=== PATIENT | female | born 1995 | race Caucasian/White ===

== ENCOUNTER 2017-01-11 09:27 | Emergency (ER) | payer OTHER ==
[~2017-01-11] VITALS: Ht 170.2 cm; Wt 72.6 kg
[~2017-01-11 09:27] MED LIST: ALBUTEROL0.09 MG/A1 INH; BACTRIM DS 8001 TAB PO; CLEOCIN HCL300 M1 PO; FISH OIL CONC1000 MG PO; IBUPROFEN800 MG PO; MELOXICAM7.5 MG PO; MOBIC15 M1 PO; MULTIVITAMIN1 TAB PO; OXYCODONE HYDROC5 MG PO; POLYTRIM EYE DR10 ML OS; PRENATAL1 TA1 PO; TESSALON PERLE100 MG PO; TRIAMCINOL0.1 %/453 TOP; TYLENOL #31 TAB PO; UNISOM25 M1 PO; VISTARIL50 MG PO
[2017-01-11 10:07] LABS: ABSOLUTE BASOPHIL COUNT 0 /CUMM (0.0-0.2); ABSOLUTE EOSINOPHIL COUNT 0 /CUMM (0.0-0.7); ABSOLUTE LYMPH COUNT 0.8 /CUMM (1.2-3.4); ABSOLUTE MONOCYTE COUNT 0.3 /CUMM (0.10-0.60); BASOPHIL % 0.1 % (0.0-2.0); EOSINOPHIL % 0.6 % (0-5); HEMATOCRIT 45.7 % (37-47); MEAN CORPUSCULAR HGB 29.1 PG (27.0-31.0); MEAN CORPUSCULAR HGB CONC 33.3 G/DL (33.0-37.0); MEAN CORPUSCULAR VOLUME 87.3 FL (81.0-99.0); MEAN PLATELET VOLUME 8.1 FL (7.4-10.4); PLATELET COUNT 189 /CUMM (130-400); RBC DISTRIBUTION WIDTH 13.5 % (11.5-14.5); RED BLOOD CELL CT 5.23 /CUMM (4.20-5.40); WHITE BLOOD CELL COUNT 8.2 /CUMM (4.8-10.8)
[2017-01-11 10:24] LABS: GRANULOCYTE % 85.1 % (42.2-75.2)
--- NOTE | 2017-01-11 11:04 | ED GI/GU/ABDOMINAL COMPLAINT ---
History of Present Illness General Chief Complaint: Nausea, Vomiting, Diarrhea Stated Complaint: +NVD, X 12 HRS Source: patient Exam Limitations: no limitations Vital Signs & Intake/Output Vital Signs & Intake/Output Vital Signs Date Time Temp Pulse Resp B/P B/P Pulse O2 O2 Flow FiO2 Mean Ox Delivery Rate 01/11 1147 99.0 76 16 121/58 98 Room Air 01/11 1118 Room Air 01/11 0936 97.4 84 16 105/68 99 Room Air Allergies Coded Allergies: adhesive tape (BUMPS, RASH 06/11/16) cephalexin (From KEFLEX) (HIVES 06/11/16) oxycodone (SOB, HOT, NAUSEA, DIZZY, TUNNEL VISION 06/11/16) Reconcile Medications Dicyclomine Hydrochloride (Bentyl) 10 MG CAPSULE 1 CAP PO TID PRN GASTROENTERITIS Meloxicam (Mobic) 15 MG TABLET 1 TAB PO DAILY PRN PAIN/INFLAMMATION Norethindrone AC-Eth Estradiol (Loestrin 21 1-20 Tablet) 1 MG-20 MCG TABLET 1 TAB PO DAILY BC (Reported) Ondansetron HCl (Zofran) 4 MG TABLET 1 TAB PO Q6-8P PRN NAUSEA Triage Note: 21 Y/O FEMALE C/O "I HAVE FOOD POISINING .. I THINK I ATE UNDERCOOKED CHICKEN". PT STATES SHE VOMITED LAST NIGHT, OVERNIGHT AND THIS MORNING. ALSO C/O DIARRHEA. +NAUSEA. AFEBRILE Triage Nurses Notes Reviewed? yes ? N Is pt currently ? No Onset: Abrupt Duration: constant Timing: recent history Severity Numbers: 5 Location: generalized abdomen Radiation: no radiation Activities at Onset: eating HPI: Patient is a 21-year-old female who presents emergency room stating that yesterday at approximately 1400 she ate a [employer] chicken sandwich and then approximately 6 hours later had multiple episodes of nausea vomiting and diarrhea. Patient has generalized abdominal discomfort. Patient has not been able tolerate anything by mouth. Denies any fever chills recent antibiotic use or vaginal bleeding or discharge or dysuria hematuria or change in frequency of urination. Past History Travel History Traveled to [place] past 21 day No Medical History Any Pertinent Medical History? see below for history Neurological: NONE EENT: NONE Cardiovascular: NONE Respiratory: asthma, bronchitis Gastrointestinal: NONE Hepatic: NONE Renal: NONE Musculoskeletal: rheumatoid arthritis Psychiatric: NONE Endocrine: NONE Blood Disorders: NONE Cancer(s): NONE CLERICAL TRANSCRIBER/Reproductive: NONE Surgical History Surgical History: appendectomy, , L ANKLE SX Psychosocial History What is your primary language Finnish Tobacco Use: Current Daily Use Daily Tobacco Use Amount/Type: => 5 Cigarettes daily Family History Hx Contributory? No Review of Systems Review of Systems Constitutional: Reports: see HPI. Denies: chills, fever. EENTM: Reports: no symptoms. Respiratory: Reports: no symptoms. Cardiovascular: Reports: no symptoms. GI: Reports: see HPI, nausea, vomiting. Genitourinary: Reports: no symptoms. Musculoskeletal: Reports: no symptoms. Skin: Reports: no symptoms. Neurological/Psychological: Reports: no symptoms. Hematologic/Endocrine: Reports: no symptoms. Immunologic/Allergic: Reports: no symptoms. All Other Systems: Reviewed and Negative Physical Exam Physical Exam General Appearance: no apparent distress, alert, comfortable Gastrointestinal: normal bowel sounds, soft, non-tender Comments: Well-developed well-nourished person in no acute distress HEENT: Normal EENT exam, Neck: Supple, no lymphadenopathy, normal range of motion without pain or tenderness Back: Nontender, no CVA tenderness. Cardiovascular: Regular rate and rhythms no murmurs rubs or gallops, normal JVP Respiratory: Chest nontender. No respiratory distress.breath sounds clear to auscultation bilaterally Abdomen: Soft, nontender nondistended, no appreciable organomegaly. Normal bowel sounds. No ascites Extremity: No edema, no calf tenderness to palpation, normal and equal pulses. Neuro: Alert oriented x3, motor sensory normal, Skin: No appreciable rash on exposed skin, skin is warm and dry. Psych: Mood and affect is normal, memory and judgment is normal. Core Measures ACS in differential dx? No Severe Sepsis Present: No Septic Shock Present: No Progress Differential Diagnosis: biliary colic, bowel obstruction, colon cancer, cholecystitis, diverticulitis, ectopic , endometritis, esophageal varices, gastritis, hepatitis, hernia, hemorrhoids, ischemic bowel, inflamm bowel dis, intrauterine , kidney stone, ovarian cyst, ovarian torsion, pancreatitis, PID/cervicitis, peptic ulcer, PUD/GERD, perforated viscous, SBO, threatened AB, UTI/pyelo Plan of Care: Orders Procedure Date/time Status LACTIC ACID 01/11 1244 Active Add-on Test (ER Only) 01/11 1104 Active HUMAN BETA HCG SCREEN 01/11 0957 Complete LACTIC ACID 01/11 09 Complete COMPREHENSIVE METABOLIC PANEL 01/12 944 Complete CBC WITHOUT DIFFERENTIAL 01/12 944 Complete URINE 01/11 939 Active URINALYSIS 01/11 939 Active Current Medications Sig/Pema Start time Last Medication Dose Stop Time Status Admin Sodium Chloride 1,000 ML BOLUS ONE 01/11 1115 AC 01/11 (Normal Saline 0.9%) 01/11 1214 1117 Laboratory Tests 01/11/17 0957: Anion Gap 12, Estimated GFR > 60, BUN/Creatinine Ratio 21.4, Glucose 89, Lactic Acid 0.9, Calcium 8.8, Total Bilirubin 0.8, AST 18, ALT 22, Alkaline Phosphatase 53, Total Protein 7.1, Albumin 4.1, Globulin 3.0, Albumin/Globulin Ratio 1.4, Total Beta HCG NEGATIVE, CBC w Diff NO MAN DIFF REQ, RBC 5.23, MCV 87.3, MCH 29.1, RDW 13.5, MPV 8.1, Gran % 85.1 H, Lymphocytes % 10.1 L, Monocytes % 4.1, Eosinophils % 0.6, Basophils % 0.1, Absolute Granulocytes 7.0 H, Absolute Lymphocytes 0.8 L, Absolute Monocytes 0.3, Absolute Eosinophils 0, Absolute Basophils 0, PUBS MCHC 33.3 Patient currently is resting comfortably bedside. Patient has nontender abdomen afebrile blood work was unremarkable. Due to history of present illness and exam findings or suspicion of gastroenteritis due to ingestion of FAST - food. 01/11/2017 12:06:58 PM reevaluation of the patient she felt significantly improved patient was able tolerate by mouth water and crackers prior to arrival. (KEVIN KAY,MANNY) Initial ED EKG: none Departure Departure Disposition: HOME OR SELF CARE Condition: Stable Clinical Impression Primary Impression: Gastroenteritis Secondary Impressions: Nausea vomiting and diarrhea Referrals: UNKNOWN (PCP/Family) Additional Instructions: As discussed begin a 24-hour clear liquid and bland diet to rest your bowels. Begin the prescription is Zofran for nausea and a prescription of Bentyl for your symptoms. Prescription is waiting at [place] [facility]. If no better on Saturday follow-up with [id number] urologist Dr. DENSON If symptoms worsen return to emergency room. BEGIN DRINKING plenty of water for hydration Departure Forms: Customer Survey General Discharge Information Prescriptions: Current Visit Scripts Ondansetron HCl (Zofran) 1 TAB PO Q6-8P PRN NAUSEA #15 TAB Dicyclomine Hydrochloride (Bentyl) 1 CAP PO TID PRN GASTROENTERITIS #9 CAP
[2017-01-11] MEDS ORDERED: ZOFRAN4 M2 PO (11:41)
[2017-01-11] MEDS ORDERED: BENTYL10 M1 PO (11:41)
[2017-01-11] MEDS ORDERED: LOESTRIN 21 1-1 EACH PO (11:43)
[2017-01-11 11:47] VITALS: BP 121/58
== END 2017-01-11 12:11 ==
LOC: ERH 09:27
PROVIDERS: Emergency Medicine
DX: K52.9 Noninfective gastroenteritis and colitis, unspecified (principal)
CPT/HCPCS: 81025; 96361; 96374; J2405

== ENCOUNTER 2017-01-24 11:21 | Emergency (ER) | payer OTHER ==
[~2017-01-24] VITALS: Ht 172.7 cm; Wt 72.6 kg
[~2017-01-24 11:21] MED LIST changes: +BENTYL10 M1 PO; +LOESTRIN 21 1-1 EACH PO; +ZOFRAN4 M2 PO
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
--- NOTE | 2017-01-24 13:42 | RADIOLOGY REPORT ---
Indication: Trauma EXAMINATION: Cervical spine and knee. Cervical spine 3 views FINDINGS: Some straightening of the normal lordosis apex at C4-C5 may be due to position or spasm. There is no fracture or dislocation seen here. 4 views of the left knee do not show evidence of fracture or dislocation. IMPRESSION: No fracture or dislocation in the left knee. Straightening of the normal lordosis in the cervical spine. May be due to position or spasm. No fracture or dislocation.
[2017-01-24 14:00] VITALS: BP 122/64
[2017-01-24] MEDS ORDERED: TYLENOL WITH C1 EACH PO (14:07)
[2017-01-24] MEDS ORDERED: MOBIC15 M1 PO (14:07)
== END 2017-01-24 14:16 ==
LOC: ERH 11:21
DX: S83.92XA Sprain of unspecified site of left knee, initial encounter (principal); S16.1XXA Strain of muscle, fascia and tendon at neck level, initial encounter; V49.50XA Passenger injured in collision with unspecified motor vehicles in traffic accident, initial encounter; Y93.9 Activity, unspecified; Y92.9 Unspecified place or not applicable
CPT/HCPCS: 72050; 73562-LT; 81025